=== PATIENT | female | born 1985 | race Caucasian/White ===

== ENCOUNTER 2016-05-30 15:04 | Emergency (ER) | payer BC ==
[~2016-05-30] VITALS: Ht 157.5 cm; Wt 101.8 kg
[~2016-05-30 15:04] MED LIST: AMB10 PO; BCPILLS PO; ESCI10TA17 PO; LAMO25TA PO
[2016-05-30 15:14] VITALS: TEMP 36.9; Ht 157.5 cm; Wt 101.8 kg
[2016-05-30 15:50] VITALS: O2SAT 97
[2016-05-30] MEDS ORDERED: SODIUM CHLORIDE 0.9% 1000ML 1,000 ML IV STA (16:03)
[2016-05-30] MEDS ORDERED: DiphenhydrAMINE HCL 50 MG/ML VIAL IV STA (16:03)
[2016-05-30] MEDS ORDERED: ONDANSETRON INJ 2 MG/ML 2 ML VIAL IV STA (16:03)
[2016-05-30] MEDS ORDERED: ACETAMINOPHEN 500 MG TAB PO STA (16:03)
[2016-05-30] MEDS ORDERED: METOCLOPRAMIDE HCL INJ 5 MG/ML 2 ML VIAL IV STA (16:03)
[2016-05-30] MEDS ORDERED: KETOROLAC TROMETHAMINE 30 MG/ML VIAL IV STA (16:03)
[2016-05-30] MEDS ORDERED: FRCT/ PO (16:05)
[2016-05-30] MEDS ORDERED: CLON0.5T3 PO (16:05)
[2016-05-30] MEDS ORDERED: PROP10TA7 PO (16:05)
[2016-05-30] MEDS ORDERED: SUMA50TA15 PO (16:05)
[2016-05-30] MEDS ORDERED: ACET-749 PO (16:05)
[2016-05-30] MEDS ORDERED: B-COTAB18 PO (16:06)
--- NOTE | 2016-05-30 16:06 | EMERGENCY ROOM VISIT NOTE ---
History Report prepared by Erika: Cory Calhoun Under the Supervision of: Dr. Elida Woody M.D. First contact with patient: 15:54 Chief Complaint: CHEST PAIN Stated Complaint: CHEST PAIN,TROUBLE BREATHING,CLEMENTE,LT ARM PAIN Nursing Triage Summary: Pt reports diffuse chest pain that began yesterday. "I get horrible migraines. My dr put me on propanolol and it was increased Mon. I don't know if that is why I have the chest pain." SOB, h/a. History of Present Illness The patient is a 30 year old female who presents to the Emergency Room with complaints of persistent chest pain beginning yesterday. She describes her pain as "tightness" and "heaviness". She notes having associated shortness of breath, right-sided headache, and mild photophobia, and denies having any fever. She admits to having a history of migraines for which she takes Tylenol and Fioricet. The patient states nothing worsens or relieves her chest pain. She reports she was recently put on propranolol and her dosage was increased 3 days ago. She had an MRI about 1 month ago, and is scheduled for an MRA this week. The patient denies any family history of clot issues. Source of History: patient Onset: yesterday Position: chest Quality: other (tightness; heaviness) Timing: other (persistent) Associated Symptoms: + SOB, + headache (right-sided), No fevers Note: The patient notes having mild photophobia. Review of Systems See HPI for pertinent positives & negatives. A total of 10 systems reviewed and were otherwise negative. Past Medical & Surgical Medical Problems: (1) History of migraine Family History No pertinent family history stated. Social History Smoking Status: Never Smoker Current/Historical Medications Scheduled B-Complex Vitamins (Vitamin B Complex), 1 TAB PO QAM Escitalopram (Lexapro), 10 MG PO QPM Propranolol (Inderal), 10 MG PO BID Scheduled PRN Acetamin/Butalbital/Caffeine (Fioricet), 1 TAB PO Q6 PRN for Headache Acetaminophen/Codeine (Tylenol W/Codeine #3), 1 TAB PO Q6 PRN for Pain Clonazepam (Klonopin), 0.5 MG PO DAILY PRN for Anxiety Sumatriptan Succinate (Imitrex), 50 MG PO PRN PRN for Headache Allergies Coded Allergies: No Known Allergies (Unverified , 05/30/16) Physical Exam Vital Signs Date Time Temp Pulse Resp B/P Pulse Ox O2 Delivery O2 Flow Rate FiO2 05/30/16 18:57 66 16 110/57 96 05/30/16 18:30 93 Room Air 05/30/16 17:04 65 97 05/30/16 16:58 113/66 05/30/16 16:55 116/57 05/30/16 16:28 109/72 05/30/16 16:04 59 20 97 05/30/16 16:00 121/64 05/30/16 16:00 67 05/30/16 15:51 97 Room Air 05/30/16 15:50 66 16 103/62 98 Room Air 05/30/16 15:50 97 Room Air 05/30/16 15:48 103/62 05/30/16 15:14 36.9 68 18 139/70 96 Room Air Physical Exam CONSTITUTIONAL: Patient is in mild painful distress. HEENT: No icterus, moist mucous membranes NECK: No meningismus, trachea is midline. CARDIOVASCULAR: Regular rate, normal perfusion RESPIRATORY: Unlabored breathing. Clear to auscultation. GASTROINTESTINAL: Non-tender GENITOURINARY: No flank tenderness MUSCULOSKELETAL: Full range of motion NEUROLOGIC: No acute gross focal deficits. PSYCHIATRIC: Normal affect SKIN: Normal for ethnicity. Medical Decision & Procedures ER Provider Diagnostic Interpretation: X-ray results as stated below per interpretation by me and the radiologist. CHEST 2 VIEWS ROUTINE FINDINGS: 1.2 cm well-circumscribed round nodule within the periphery of the left midlung zone. Right lung is clear. The heart is normal in size. No pleural effusions. No pneumothorax. IMPRESSION: 1. No acute process within the chest. 2. A 1.2 cm nodule overlapping the left midlung zone. This could be within the adjacent soft tissues or the lung. Follow-up nonemergent chest CT is recommended for further evaluation. Electronically signed by: Pernell Salgado M.D. 05/30/2016 4:51 PM Dictated Date/Time: 05/30/2016 4:42 PM Laboratory Results 05/30/16 16:00 Red Blood Count 4.24, Mean Corpuscular Volume 87.7, Mean Corpuscular Hemoglobin 30.7, Mean Corpuscular Hemoglobin Concent 34.9, Mean Platelet Volume 8.6, Neutrophils (%) (Auto) 63.9, Lymphocytes (%) (Auto) 27.5, Monocytes (%) (Auto) 6.6, Eosinophils (%) (Auto) 1.6, Basophils (%) (Auto) 0.2, Neutrophils # (Auto) 5.91, Lymphocytes # (Auto) 2.54, Monocytes # (Auto) 0.61, Eosinophils # (Auto) 0.15, Basophils # (Auto) 0.02 Test 05/30/16 16:00 05/30/16 16:37 White Blood Count 9.25 K/uL (4.8-10.8) Red Blood Count 4.24 M/uL (4.2-5.4) Hemoglobin 13.0 g/dL (12.0-16.0) Hematocrit 37.2 % (37-47) Mean Corpuscular Volume 87.7 fL (80-100) Mean Corpuscular Hemoglobin 30.7 pg (25-34) Mean Corpuscular Hemoglobin Concent 34.9 g/dl (32-36) Platelet Count 310 K/uL (130-400) Mean Platelet Volume 8.6 fL (7.4-10.4) Neutrophils (%) (Auto) 63.9 % Lymphocytes (%) (Auto) 27.5 % Monocytes (%) (Auto) 6.6 % Eosinophils (%) (Auto) 1.6 % Basophils (%) (Auto) 0.2 % Neutrophils # (Auto) 5.91 K/uL (1.4-6.5) Lymphocytes # (Auto) 2.54 K/uL (1.2-3.4) Monocytes # (Auto) 0.61 K/uL (0.11-0.59) Eosinophils # (Auto) 0.15 K/uL (0-0.5) Basophils # (Auto) 0.02 K/uL (0-0.2) RDW Standard Deviation 39.9 fL (36.4-46.3) RDW Coefficient of Variation 12.4 % (11.5-14.5) Immature Granulocyte % (Auto) 0.2 % Immature Granulocyte # (Auto) 0.02 K/uL (0.00-0.02) D-Dimer 210 ug/L FEU (0-500) Troponin I < 0.015 ng/ml (0-0.045) Human Chorionic Gonadotropin, Qual NEG (NEG) Urine Color YELLOW Urine Appearance CLEAR (CLEAR) Urine pH 7.0 (4.5-7.5) Urine Specific [place]mon 1.005 (1.000-1.030) Urine Protein NEG (NEG) Urine Glucose (UA) NEG (NEG) Urine Ketones NEG (NEG) Urine Occult Blood NEG (NEG) Urine Nitrite NEG (NEG) Urine Bilirubin NEG (NEG) Urine Urobilinogen NEG (NEG) Urine Leukocyte Esterase TRACE (NEG) Urine WBC (Auto) 1-5 /hpf (0-5) Urine RBC (Auto) 0-4 /hpf (0-4) Urine Hyaline Casts (Auto) 0 /lpf (0-5) Urine Epithelial Cells (Auto) 20-30 /lpf (0-5) Urine Bacteria (Auto) NEG (NEG) Urine Opiates Screen NEG (NEG) Urine Methadone, Qualitative NEG (NEG) Urine Barbiturates POS (NEG) Urine Phencyclidine (PCP) Level NEG (NEG) Ur Amphetamine/Methamphetamine NEG (NEG) MDMA (Ecstasy) Screen NEG (NEG) Urine Benzodiazepines Screen NEG (NEG) Urine Cocaine Metabolite NEG (NEG) Urine Marijuana (THC) NEG (NEG) Labs reviewed by ED physician. Medications Administered Medications (Trade) Dose Ordered Sig/Hector Route Start Time Stop Time Status Last Admin Dose Admin Acetaminophen 1000 mg 1,000 mg NOW STAT PO 05/30/16 16:03 05/30/16 16:05 DC 05/30/16 16:46 1,000 MG Sodium Chloride (Nss 1000ml) 1,000 ml @ 0 mls/hr Q0M STAT IV 05/30/16 16:03 05/30/16 16:05 DC 05/30/16 16:47 0 MLS/HR Ketorolac Tromethamine (Toradol Inj) 30 mg NOW STAT IV 05/30/16 16:03 05/30/16 16:05 DC 05/30/16 16:49 30 MG Ondansetron HCl (Zofran Inj) 4 mg NOW STAT IV 05/30/16 16:03 05/30/16 16:05 DC 05/30/16 16:48 4 MG Diphenhydramine HCl (Benadryl Inj) 25 mg NOW STAT IV 05/30/16 16:03 1/16/17 16:05 DC 05/30/16 16:50 25 MG Metoclopramide HCl (Reglan Inj) 10 mg NOW STAT IV 05/30/16 16:03 05/30/16 16:05 DC 05/30/16 16:53 10 MG ECG Indication: chest pain Rate (beats per minute): 67 Rhythm: sinus rhythm Findings: no ectopy, other (Normal axis; normal ST segment) ED Course 1555: Past medical records reviewed. The patient was evaluated in room C11B. A complete history and physical examination was performed. 1603: Ordered Reglan Inj 10 mg IV, Benadryl Inj 25 mg IV, Zofran Inj 4 mg IV, Toradol Inj 30 mg IV, NSS 1,000 ml @ 0 mls/hr Wide Open IV, and Tylenol Tab 1, 000 mg PO. 1840: Upon reexamination the patient is hemodynamically stable. I discussed results and treatment plan with the patient. She verbalizes agreement and understanding. The patient is ready for discharge. Medical Decision Differentials include migraines, prescription dependency tolerance, pulmonary embolism, and heart disease. 30-year-old presents to the emergency department for evaluation of both recurrence of a migraine headache as well as nonspecific chest pain. I will triage note medications report the use of control pills she states she is no longer on these she also denies family history of thromboembolic disease. She is being followed for her migraines. Doctor recently started a beta velma and she is concerned this is not effective or may be contributing to her symptoms. EKG and troponin were both normal nodule noted on chest x-ray and patient currently understands to follow-up with her doctor for repeat imaging on a routine basis. On reexamination at 6:30 PM patient appears comfortable in no acute distress after Toradol, Reglan and Benadryl. She and have no further concerns and her agreement with plan to follow up with the primary doctor as well as to return for any worsening worrisome symptoms . Impression Primary Impression: History of migraine Additional Impression: Non-cardiac chest pain Scribe Attestation The scribe's documentation has been prepared under my direction and personally reviewed by me in its entirety. I confirm that the note above accurately reflects all work, treatment, procedures, and medical decision making performed by me. Departure Information Dispostion Home / Self-Care Referrals Pilar Denny (PCP) Patient Instructions Chest Pain - [facility], ED Headache Migraine, [facility] Health Problem Qualifiers
[2016-05-30 16:16] LABS: BASO % 0.2 %; BASO ABS # 0.02 K/uL (0-0.2); COMPLETE YES; EOS % 1.6 %; HEMATOCRIT 37.2 % (37-47); IG% 0.2 %; LYMPH % 27.5 %; LYMPH ABS # 2.54 K/uL (1.2-3.4); MEAN CELL VOLUME 87.7 fL (80-100); MEAN CORPUSCULAR HEMOGLOBIN 30.7 pg (25-34); MEAN CORPUSCULAR HGB CONC 34.9 g/dl (32-36); MEAN PLATELET VOLUME 8.6 fL (7.4-10.4); MONO % 6.6 %; NEUT % 63.9 %; PLATELET COUNT 310 K/uL (130-400); RED BLOOD COUNT 4.24 M/uL (4.2-5.4); WHITE BLOOD COUNT 9.25 K/uL (4.8-10.8)
[2016-05-30 16:49] LABS: PREG INTERNAL NEGATIVE QC NEG CLEAR BACKGROUND; PREG INTERNAL POSITIVE QC POS CONTROL LINE
--- NOTE | 2016-05-30 16:53 | DIAGNOSTIC IMAGING REPORT ---
CHEST 2 VIEWS ROUTINE HISTORY: Atypical chest pain. Dyspnea. COMPARISON: None. FINDINGS: 1.2 cm well-circumscribed round nodule within the periphery of the left midlung zone. Right lung is clear. The heart is normal in size. No pleural effusions. No pneumothorax. IMPRESSION: 1. No acute process within the chest. 2. A 1.2 cm nodule overlapping the left midlung zone. This could be within the adjacent soft tissues or the lung. Follow-up nonemergent chest CT is recommended for further evaluation. Electronically signed by: Pernell Salgado M.D. 05/30/2016 4:51 PM Dictated Date/Time: 05/30/2016 4:42 PM
[2016-05-30 17:02] LABS: URINE APPEARANCE CLEAR (CLEAR); URINE BILIRUBIN NEG (NEG); URINE COLOR YELLOW; URINE EPITHELIAL CELL AUTO 20-30 /lpf (0-5); URINE NITRITE NEG (NEG); URINE SPECIFIC GRAVITY 1.005 (1.000-1.030); UROBILINOGEN NEG (NEG)
[2016-05-30 17:08] LABS: MANUAL MICROSCOPIC REQUIRED? NO; REVIEW REQ? NO
[2016-05-30 17:18] LABS: BENZODIAZEPINE, URINE NEG (NEG); COCAINE,URINE NEG (NEG); PHENCYCLIDINE, URINE NEG (NEG)
[2016-05-30 18:57] VITALS: BP 110/57; PULSE 66; O2SAT 96
== END 2016-05-30 19:03 | disposition home or self-care (01) ==
LOC: C.EDB 15:05 → C.EDC 19:03
DX: G43.909 Migraine, unspecified, not intractable, without status migrainosus (principal); R07.89 Other chest pain; Z79.899 Other long term (current) drug therapy

== ENCOUNTER → 2016-06-03 | Outpatient (CLI) | payer BC ==
[~2016-06-03] MED LIST changes: +ACET-749 PO; -AMB10 PO; +B-COTAB18 PO; -BCPILLS PO; +CLON0.5T3 PO; +FRCT/ PO; -LAMO25TA PO; +PROP10TA7 PO; +SUMA50TA15 PO
--- NOTE | 2016-06-03 10:28 | DIAGNOSTIC IMAGING REPORT ---
MR ANGIOGRAM OF THE BRAIN CLINICAL HISTORY: Headache. Memory loss. COMPARISON STUDY: MRI of the brain dated 04/12/2016. TECHNIQUE: 3-D [id number] MR angiography of the intracranial circulation is performed. 3-D tumble views are created and assessed. IV contrast was not administered for this examination. FINDINGS: There is a left posterior communicating artery. The right A1 segment appears diminutive. The internal carotid arteries are widely patent bilaterally, as are the anterior and middle cerebral arteries. The vertebrobasilar system and posterior cerebral arteries are widely patent. The left vertebral artery is dominant. There is no aneurysm, high-grade stenosis, or focal vessel cutoff seen throughout the intracranial circulation. The brain parenchyma is normal as visualized. IMPRESSION: Unremarkable MR angiogram of the brain. Electronically signed by: Agustin Crawford M.D. 06/03/2016 10:26 AM Dictated Date/Time: 06/03/2016 10:24 AM
== END | disposition home or self-care (01) ==
LOC: C.MRI 09:50
PROVIDERS: ATTEND Nurse Practitioner Family
DX: R51 Headache (principal); R20.9 Unspecified disturbances of skin sensation; R41.3 Other amnesia

== ENCOUNTER → 2017-06-14 | Outpatient (CLI) | payer BC ==
[2017-06-14 18:03] LABS: HEMATOCRIT 38.6 % (37-47); HEMOGLOBIN 12.9 g/dL (12.0-16.0); MEAN CELL VOLUME 90.2 fL (80-100); MEAN CORPUSCULAR HEMOGLOBIN 30.1 pg (25-34); MEAN CORPUSCULAR HGB CONC 33.4 g/dl (32-36); MEAN PLATELET VOLUME 8.6 fL (7.4-10.4); PLATELET COUNT 323 K/uL (130-400); RED CELL DISTRIBUTION WIDTH CV 12.9 % (11.5-14.5); RED CELL DISTRIBUTION WIDTH SD 41.7 fL (36.4-46.3); WHITE BLOOD COUNT 8.58 K/uL (4.8-10.8)
[2017-06-14 18:04] LABS: BLOOD UREA NITROGEN 4 mg/dl (7-18); CARBON DIOXIDE 28 mmol/L (21-32); CREATININE 0.73 mg/dl (0.60-1.20); GLUCOSE 106 mg/dl (70-99); POTASSIUM 3.1 mmol/L (3.5-5.1); SODIUM 138 mmol/L (136-145)
[2017-06-14 18:16] LABS: T3 FREE 2.95 pg/ml (2.30-4.20)
== END | disposition home or self-care (01) ==
LOC: C.LABMFLN 11:53
PROVIDERS: ATTEND Nurse Practitioner Family
DX: R00.2 Palpitations (principal); R06.09 Other forms of dyspnea; E55.9 Vitamin D deficiency, unspecified; R20.2 Paresthesia of skin; N92.0 Excessive and frequent menstruation with regular cycle